=== PATIENT | male | born 1980 | race African-American/Black ===

== ENCOUNTER 2017-10-05 05:09 | Emergency (ER) | payer BC, OTHER ==
[2017-10-05 05:15] VITALS: BP 127/76; BMI 31.3
--- NOTE | 2017-10-05 05:32 | DR.GENAD ---
HPI - PCP Primary Care Physician: tamara brandon - Complaint/Symptoms Chief Complaint Doctors Comments: Patient presents with comlaint of right jaw swelling w/o history of trauma or insect bite. Chief Complaint:: RIGHT SIDE OF FACE SWOLLEN . "I WENT TO BED AROUND 9 PM LAST NIGHT AND WOKE UP AROUND 3AM THIS MORNING. IT WAS SWOLLEN WHEN I WOKE UP." PATIENT STATES, "IT FEELS NUMB, ITS JOCELYNN OF PAINFUL. FEELS STIFF." PATIENT DENIES ANY BAD TEETH, DENIES ANY BITE TO HIS KNOWLEGDE. - Source History Provided: Patient - Mode of Arrival Mode of Arrival: Ambulatory - Timing Onset of Chief Complaint: 10/05/17 PMH - PMH Past Medical History: Yes Past Medical History: Asthma Past Surgical History: No - Family History History of Family Medical Conditions: Yes Family Medical History: Diabetes Mellitus, Hypertension - Social History Type of Tobacco Use: None Does any household member use tobacco: No Alcohol Use: None Do you use any recreational Drugs:: No Lives Where: Home - infectious screening Have you traveled outside the country in the last 6 months?: No Isolation: Standard ROS - Review of Systems Eyes: No Symptoms Reported ENTM: No Symptoms Reported Respiratoy: No Symptoms Reported Cardiovascular: No Symptoms Reported Gastrointestinal/Abdominal: No Symptoms Reported Genitourinary: No Symptoms Reported Neurological: No Symptoms Reported Musculoskeletal: No Symptoms Reported Integumentary: No Symptoms Reported Hematologic/Lymphatic: No Symptoms Reported Endocrine: No Symptoms Reported Psychiatric: No Symptoms Reported All Other Systems: Reviewed and Negative PE - Vital Signs Vitals: Temperature 98.0 F Pulse Rate 68 Respiratory Rate 18 Blood Pressure 127/76 O2 Sat by Pulse Oximetry 97 - General General Appearance: Alert - Head Head Exam: Normal Inspection, Atraumatic - Eyes Eye exam: Normal Appearance, PERRL, EOMI - ENT ENT Exam: Normal Exam External Ear Exam: Normal External Inspection TM/Canal Exam: Right Erythema (proximal external auditory canal), Bilateral Normal Nose Exam: Normal Nose Exam Mouth Exam: Normal Inspection, Other (swelling at angle of jaw right side w/o tenderness). negative: Trismus Throat Exam: Normal Inspection - Neck Neck Exam: Normal Inspection, Full ROM - Chest Chest Inspection: Normal Inspection, Symmetric Chest Wall Rise - Respiratory Respiratory Exam: Normal Lung Sounds Bilat, Accessory Muscle Use Respiratory Exam: Bilateral Clear to Auscultation - Cardiovascular Cardiovascular Exam: Regular Rate, Normal Rhythm - Abdominal Exam Abdominal Exam: Normal Inspection, Normal Bowel Sounds Abdominal Tenderness: negative: RUQ, RLQ, LUQ, LLQ, Epigastrium, Suprapubic, Diffuse, Mild, Moderate, Severe, Other - Extremities Extremities Exam: Normal Inspection, Full ROM - Back Back Exam: Normal Inspection, Full ROM - Neurologic Neurological Exam: Alert, Oriented X3, CN II-XII Intact - Psychiatric Psychiatric Exam: Normal Affect - Skin Skin Exam: Warm, Dry, Intact - Diagnosis Discharge Problem: Acute parotitis - Discharge Plan Condition: Stable - Follow ups/Referrals Follow ups/Referrals: TAMARA BRANDON [Primary Care Provider] - 3 days - Instructions
== END 2017-10-05 05:51 | disposition home or self-care (01) ==
LOC: ER 05:09
DX: K11.20 Sialoadenitis, unspecified (principal)
CPT/HCPCS: 99281